=== PATIENT | female | born 1960 | race Caucasian/White ===

== ENCOUNTER 2017-07-02 23:57 | Emergency (ER) | payer OTHER ==
[2017-07-03] MEDS ORDERED: NAPROXEN SODIUM 550 MG TABLET PO ONE (00:08)
[2017-07-03] MEDS ORDERED: NAPROXEN SODIUM 550 MG TABLET ONE (00:09)
--- NOTE | 2017-07-03 00:16 | ERNOTE ---
Back Pain ER HPI Time Seen by Provider: 07/02/17 23:58 Source: patient Exam Limitations: no limitations Immunizations: IMMUNIZATION HX Immunizations Up to Date Yes Allergies/Adverse Reactions: Allergies No Known Allergies Allergy (Unverified 07/03/17 00:04) Home Medications: HOME MEDICATIONS Aspirin [Aspirin Chewable] 81 mg PO DAILY 07/03/17 [Last Taken Unknown] Cyclobenzaprine HCl [Flexeril] 10 mg PO TID PRN #30 tab 07/03/17 [Last Taken Unknown] Hydrochlorothiazide 12.5 mg PO DAILY 07/03/17 [Last Taken Unknown] Losartan Potassium [Cozaar] 100 mg PO HS 07/03/17 [Last Taken Unknown] Naproxen [Naprosyn] 500 mg PO BID #40 tablet 07/03/17 [Last Taken Unknown] oxyCODONE HCL/ACETAMINOPHEN [Percocet 5 MG/325 MG] 1 tab PO Q4H PRN #10 tab [Last Taken Unknown] Narrative: Patient has had back pain for three days. The pain started slowly, denies any injury, no other associated symptoms. It hurts to breath and move. She tried four ibuprofen without relieve. She had similar symptoms years ago and was diagnosed with pleurisy Date (Duration): 06/29/17 Timing: Reports: constant Quality/Severity: Reports: moderate Location of pain: Reports: mid back, no radiation Activities at Onset: Reports: none Recent Injury?: Reports: no Possible Precipitating Factor: Denies: lifting, turning/bending, fall/near fall Modifying Factors - (Improves): Reports: nothing Modifying Factors - (Worsens): Reports: cough/deep breaths Associated Symptoms: Denies: fever/chills, sweating, problems urinating, difficulty walking, numbess/weakness in legs Prior Treament: Reports: similar symptoms before. Denies: recently seen Review of Systems - Review of Systems Constitutional: Absent: recent illness, fever ENT: Absent: nose pain, nose congestion, nasal drainage, sore throat Respiratory: Present: cough - occasional slight. Absent: shortness of breath Cardiology: Absent: chest pain Gastrointestinal/Abdominal: Present: constipation. Absent: nausea, vomiting, abdominal pain Genitourinary: Present: no symptoms reported Musculoskeletal: Present: See HPI Skin: Absent: rash Neurological: Absent: headache, weakness, numbness - Patient's Past Medical History Patient History - Medical: No pertinent hx Patient History - Cardiac/Respiratory: Hypertension Patient History - Cancer: Cervical, Other Patient History - Surgical Procedures: Hysterectomy, Total Hip Replacement, Total Knee Replacement, Orthopedic Patient History - Other: None - Social History Living Situations: home Psych History: No pertinent hx Smoking Status: Current every day smoker Cigarettes Packs Per Day: 1 Patient requests Smoking Cessation Consult: No Initiate information on Smoking Cessation: No Alcohol Use: rarely - 3-4 drinks per week Drug Use: none - Immunizations Immunizations Up to Date: Yes Physical Exam - Physical Exam General Appearance: Present: wd/wn, alert, no apparent distress, obese Eye Exam: Normal inspection: bilateral Ears, Nose, Throat: Present: normal ENT inspection, normal pharynx Neck: Present: normal inspection, nontender Respiratory: Present: no respiratory distress, normal breath sounds, no accessory muscle use, lungs clear Cardiovascular/Chest: Present: regular rate, rhythm, no murmur Back Exam: Present: normal inspection, normal range of motion, no vertebral tenderness, muscle spasm - mid thoracic paravertebral muscle very tender Extremity Exam: Present: normal inspection Neurological Exam: Present: alert, oriented, normal mood/affect, no motor/ sensory deficits DTR: N=norm/NB=norm/brisk/A=abs/DD=dull/dimin/HC=hyperactive: Knee (R): Normal, Knee (L): Normal, Ankle (R): Normal, Ankle (L): Normal Skin Exam: Present: normal color, warm/dry ED Progress - Vital Signs Patient's Vital Signs:: I have reviewed the patient's vital signs. Vital Signs: Vital Signs 07/02/17 23:59 Pulse Rate 75 Respiratory 18 Rate Blood Pressure 143/86 O2 Sat by Pulse 97 Oximetry - X-Ray X-Ray #1 X-Ray: chest - no acute cardiopulmonary findings, DDD Interpretation: Interp. by me - Progress/Reassessment Chief Complaint: Back Pain Progress Note-Subjective: 07/03/17 00:40 discussed results with patient Departure Clinical Impression: Back pain, thoracic Qualifiers: Chronicity: acute Back pain laterality: bilateral Qualified Code(s): M54.6 - Pain in thoracic spine - Departure Disposition: Home self-care Condition: Good Instructions: Back Pain, Adult, [id number] Additional Instructions: take the naproxen and flexeril, take the percocet to help you sleep at night if you are not better after the weekend call your doctor for follow up Referrals: Shyam Reyes MD [Primary Care Provider] - Prescriptions: Cyclobenzaprine HCl [Flexeril] 10 mg PO TID PRN #30 tab PRN Reason: MUSCLE SPASMS Naproxen [Naprosyn] 500 mg PO BID #40 tablet oxyCODONE HCL/ACETAMINOPHEN [Percocet 5 MG/325 MG] 1 tab PO Q4H PRN #10 tab PRN Reason: Pain
[2017-07-03] MEDS ORDERED: oxyCODONE HCL/ACETAMINOPHEN 1 TAB TABLET PO ONE (00:36)
[2017-07-03] MEDS ORDERED: CYCLOBENZAPRINE HCL 10 MG TABLET PO ONE (00:36)
[2017-07-03] MEDS ORDERED: CYCLOBENZAPRINE HCL 10 MG TABLET ONE (00:38)
[2017-07-03] MEDS ORDERED: oxyCODONE HCL/ACETAMINOPHEN 1 TAB TABLET ONE (00:38)
[2017-07-03 00:48] VITALS: BP 142/75
== END 2017-07-03 00:44 | disposition home or self-care (01) ==
LOC: ER 23:57
DX: M54.6 Pain in thoracic spine (principal); I10 Essential (primary) hypertension; Z85.41 Personal history of malignant neoplasm of cervix uteri; F17.200 Nicotine dependence, unspecified, uncomplicated